=== PATIENT | male | born 1970 | race Caucasian/White ===

== ENCOUNTER → 2018-11-16 | Outpatient (CLI) | payer OTHER ==
[2018-11-16 17:39] LABS: FREE T4 (FREE THYROXINE) 0.99 ng/dL (0.78-2.19)
[2018-11-16 17:53] LABS: THYROID STIMULATING HORMONE 5.69 uIU/mL (0.47-4.68)
== END ==
LOC: OD 15:33
PROVIDERS: ATTEND Otolaryngology
DX: J30.9 Allergic rhinitis, unspecified (principal); E07.9 Disorder of thyroid, unspecified
CPT/HCPCS: 36415; 82785; 84439; 84443; 86003